=== PATIENT | female | born 1985 | race Caucasian/White ===

== ENCOUNTER → 2020-08-29 | Outpatient (CLI) | payer MEDICAID ==
[~2020-08-29] MED LIST: OXYC-325 PO
== END ==
LOC: LAB 06:37
PROVIDERS: ATTEND Surgery
DX: Z01.812 Encounter for preprocedural laboratory examination (principal); N21.0 Calculus in bladder; Z20.828 Contact with and (suspected) exposure to other viral communicable diseases
CPT/HCPCS: U0003

== ENCOUNTER 2020-08-31 08:28 | Day surgery (SDC) | payer MEDICAID ==
[~2020-08-31] VITALS: Ht 161.3 cm; Wt 98.0 kg
[~2020-08-31 08:28] MED LIST changes: +HYDROmorphone 2 MG/ML VIAL IV PRN; +IV RINGERS,LACTATED 1000ML 1,000 ML IV SCH; +LIDOCAINE 1% PF 2 ML VIAL. ID PRN; +ONDANSETRON PF 4 MG/2 ML VIAL. IV PRN; -OXYC-325 PO; +fentaNYL PF VIAL 100 MCG/2 ML VIAL IV PRN
[2020-08-31] MEDS ORDERED: DEXAMETHASONE SOD PHOS 4 MG/ML VIAL ONE (10:18)
[2020-08-31] MEDS ORDERED: PROPOFOL 10 MG/ML (20ML) VIAL. IV ONE (10:18)
[2020-08-31] MEDS ORDERED: LIDOCAINE 2% PF 5 ML VIAL. ONE (10:18)
[2020-08-31] MEDS ORDERED: ONDANSETRON PF 4 MG/2 ML VIAL. ONE (10:19)
[2020-08-31] MEDS ORDERED: ROCURONIUM 50 MG/5 ML VIAL. ONE (10:20)
[2020-08-31] MEDS ORDERED: MIDAZOLAM HCL/PF 2 MG/2 ML VIAL. ONE (10:22)
[2020-08-31] MEDS ORDERED: fentaNYL PF VIAL 100 MCG/2 ML VIAL ONE ×3 (10:22→12:14)
[2020-08-31] MEDS ORDERED: IOHEXOL 300 MG/ML 50 ML VIAL. ONE ×2 (11:01→11:02)
[2020-08-31] MEDS ORDERED: BUPIVACAINE MPF 0.5% 30 ML VIAL. ONE (11:01)
[2020-08-31] MEDS ORDERED: SURGICEL HEMOSTAT 4X8 EACH. ONE (11:01)
[2020-08-31] MEDS ORDERED: PHENYLEPHRINE in 0.9% NACL PF 1 MG/10 ML SYRINGE. IV ONE (11:03)
[2020-08-31] MEDS ORDERED: GLYCOPYRROLATE 1 MG/5 ML VIAL. ONE (11:37)
[2020-08-31] MEDS ORDERED: NEOSTIGMINE METHYLSULFATE 5 MG/5 ML SYRINGE. ONE (11:37)
[2020-08-31] MEDS ORDERED: SEVOFLURANE 61 TO 120 MINUTES. IH ONE (11:47)
--- NOTE | 2020-08-31 11:47 | PDOC4 ---
Operative Note Operative Note Operative Note: Preoperative Diagnosis: Symptomatic cholelithiasis Postoperative Diagnosis: Same Procedure: Laparoscopic cholecystectomy with intraoperative cholangiogram Surgeons: Gregorio Professional Programmer Analyst: CLAIRE Mead Anesthesia: Gen. Estimated Blood Loss: 10 mL Specimen: Gallbladder to pathology Drains: None Complications: None Indications: The patient is a 34-year-old female who was referred due to symptomatic cholelithiasis. Surgical treatment was offered by means of a laparoscopic cholecystectomy. The risks of surgery were discussed which include bleeding, infection, bile duct injury, bile leak, pain, the potential for additional surgeries or procedures. The patient understands and would like to proceed. Description: The patient was taken to the operating room and laid supine on the operating table. General anesthesia was performed. The abdomen was prepped with ChloraPrep and draped in a standard surgical fashion. A small infraumbilical incision was made with a scalpel. The Veress needle was then inserted and a pneumoperitoneum was then created. A 5 mm trocar was then inserted and the laparoscope was introduced. In the upper midabdomen a 5 mm trocar was inserted and in the right upper quadrant two 2.3 mm mini lap graspers were inserted. The gallbladder was retracted cephalad. The cystic duct was dissected free from surrounding tissues. One clip was placed on the duct near the gallbladder junction. An opening was made in the duct and a cholangiocatheter placed within and secured with a clip. Using contrast dye and fluoroscopy an intraoperative cholangiogram was performed that appeared unremarkable. The clip and catheter were then withdrawn. Three clips were placed on the cystic duct and it was divided. The cystic artery was then identified, dissected free, doubly clipped and divided as well. The gallbladder was then mobilized away from the liver with cautery. The umbilical 5 millimeter trocar was exchanged for an 11 millimeter trocar. The gallbladder was then placed in an endoscopic bag and extracted at the umbilical trocar site. The fascia there was closed with an 0 Vicryl suture. All blood and irrigation fluid was suctioned and hemostasis was good. The remaining ports were removed and the pneumoperitoneum was relieved. The skin incisions were injected with half percent Marcaine with epinephrine, and all were closed using 4-0 Monocryl suture. Steri-Strips and dressings were then applied. The patient tolerated the procedure well and was sent to the recovery room in stable condition. At the end of the case all counts were correct. SADIE LEONARD MD Aug 31, 2020 11:47
--- NOTE | 2020-08-31 11:49 | DISCH ---
DISCHARGE INSTRUCTIONS Condition on Discharge Condition on Discharge: Stable Activity After Discharge Activity Instructions for Disc: Other, see below (no lifting over 20 lbs X 2 weeks, no driving while taking pain meds) Diet after Discharge Diet after Discharge: Regular Wound Incision Care Wound/Incision Care: Other, see below (may remove bandaids and shower tomorrow) Follow-Up Follow up with: Dr Leonard in 2 weeks in office, call for appt [phone] SADIE LEONARD MD Aug 31, 2020 11:49
--- NOTE | 2020-08-31 11:54 | RAD ---
EXAM: INTRAOPERATIVE CHOLANGIOGRAM. HISTORY: Gallbladder disease. Intraoperative cholangiogram with cholecystectomy. COMPARISON: None. FINDINGS: 3 fluoroscopic images are obtained intraoperatively during injection of the cystic duct rem nant after cholecystectomy. There are no filling defects to suggest retained stones. The common duct is not dilated. Fluoroscopy time 11 seconds. IMPRESSION: 1. No evidence of retained stones. Electronically signed by: Carmenza Flores MD (08/31/2020 11:52 AM) [id number]
[2020-08-31] MEDS ORDERED: oxyCODONE/APAP 5/325 1 TAB TABLET PO ONE ×2 (12:00)
[2020-08-31] MEDS ORDERED: PROCHLORPERAZINE 10 MG/2 ML VIAL. ONE (12:09)
[2020-08-31] MEDS: PROCHLORPERAZINE 10 MG/2 ML VIAL. IV PRN ×2 (12:13→12:21)
[2020-08-31] MEDS: fentaNYL PF VIAL 100 MCG/2 ML VIAL IV PRN ×2 (12:16→12:34)
[2020-08-31] MEDS ORDERED: OXYC-325 PO (12:27)
[2020-08-31] MEDS ORDERED: MORPHINE SULFATE 2 MG/ML VIAL. ONE (12:44)
[2020-08-31] MEDS: MORPHINE SULFATE 2 MG/ML VIAL. IV PRN ×2 (12:49→13:02)
[2020-08-31] MEDS ORDERED: SCOPOLAMINE 1.5MG PATCH. TD ONE (13:00)
[2020-08-31 13:15] VITALS: BP 121/72
== END 2020-08-31 14:14 | disposition home or self-care (01) ==
LOC: SURG 08:28
PROVIDERS: ATTEND Surgery
DX: K80.80 Other cholelithiasis without obstruction (principal); K21.9 Gastro-esophageal reflux disease without esophagitis; F41.9 Anxiety disorder, unspecified; F32.9 Major depressive disorder, single episode, unspecified; Z98.51 Tubal ligation status; Z98.890 Other specified postprocedural states; Z79.899 Other long term (current) drug therapy; Z88.0 Allergy status to penicillin
CPT/HCPCS: 47563; 74300; 81025; J0780; J1100; J1956; J2250; J2270; J2370; J2405; J2704; J2710; J3010; J3490; J7120; Q9967; 88304